=== PATIENT | female | born 1980 | race Caucasian/White ===

== ENCOUNTER 2024-04-27 21:56 | Emergency (ER) | payer BC ==
[~2024-04-27] VITALS: Ht 154.9 cm; Wt 54.4 kg
[2024-04-27 22:12] VITALS: BP_SYST 139; PULSE 47; RESP 18; TEMP 98.6; O2SAT 100
[2024-04-27] MEDS: MORPHINE 4 MG INJ. 4 MG/ML VIAL IM ONE (23:07)
[2024-04-28] MEDS ORDERED: NAPR-690 PO (00:36)
[2024-04-28] MEDS: KETOROLAC TROMETHAMINE 60 MG/2 ML VIAL IM ONE (00:46)
[2024-04-28 00:54] VITALS: BP_SYST 128; PULSE 70; RESP 16; TEMP 98.6; O2SAT 98
== END 2024-04-28 00:53 | disposition home or self-care (01) ==
LOC: SED 21:56
DX: S82.451A Displaced comminuted fracture of shaft of right fibula, initial encounter for closed fracture (principal); Z79.899 Other long term (current) drug therapy; W01.0XXA Fall on same level from slipping, tripping and stumbling without subsequent striking against object, initial encounter; Y93.89 Activity, other specified; Y92.89 Other specified places as the place of occurrence of the external cause; Y99.8 Other external cause status
CPT/HCPCS: 99284; 29515; 73600; 96372 ×2; J2270; J1885